=== PATIENT | female | born 1940 | race African-American/Black ===

== ENCOUNTER 2022-01-03 17:52 | Emergency (ER) | payer MEDICARE, MEDICAID ==
[~2022-01-03] VITALS: Ht 175.3 cm; Wt 98.9 kg
--- NOTE | 2022-01-03 17:52 | NUR ---
[facility] TO ER BED 10
[2022-01-03 17:55] VITALS: BP 119/58
--- NOTE | 2022-01-03 18:00 | NUR ---
81 Y/O F C/O ALOC X1 DAY FROM [facility]. PT IS A&OX0. PER EMS PT WAS LOW SAT 70'S. COOL TO TOUCH. SB ON MONITOR. GCS 3. LAST KNOWN WELL 1400. SACRAL WOUND. 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
--- NOTE | 2022-01-03 18:05 | NUR ---
Jane jha in [facility] - 01/03/22 at 1806 by VANESSA CODE BRAIN INITIATED
--- NOTE | 2022-01-03 18:05 | NUR ---
CODE BRAIN INITIATED. CT MADE AWARE.
--- NOTE | 2022-01-03 18:15 | NUR ---
PT TAKEN TO CT SCAN VIA [facility], ACCOMPANIED BY ZAC COLÓN, TRAVEL REGISTERED NURSE PACU, AND JORGE NANCE
--- NOTE | 2022-01-03 18:32 | NUR ---
PT RETURNED FROM CT
--- NOTE | 2022-01-03 18:51 | NUR ---
LAB AT BEDSIDE
--- NOTE | 2022-01-03 19:15 | NUR ---
CTA CONSENT OBTAINED VIA TELEPHONE WITH PT'S SHANE HENSON WITH 2 RN'S. CONSENT PLACED IN CHART
--- NOTE | 2022-01-03 19:19 | NUR ---
KULWINDER SWAB COLLECTED HANDED TO GUM SCORING MACHINE OPERATOR
--- NOTE | 2022-01-03 19:21 | NUR ---
Pt report given to BYRON RN. Transfer of care at this time.
[2022-01-03 19:37] LABS: BASOPHILS # (AUTO) 0.2 K/uL (0.00-0.22); BASOPHILS % (AUTO) 1.4 % (0.0-2.0); EOSINOPHILS # (AUTO) 0.3 K/uL (0-0.4); EOSINOPHILS % (AUTO) 1.7 % (0.0-4.0); HEMATOCRIT 30.4 % (36-48); HEMOGLOBIN 9.7 g/dL (12.0-16.0); LYMPHOCYTES # (AUTO) 0.6 K/uL (2.5-16.5); MEAN CORPUSCULAR HEMOGLOBIN 29 pg (27-31); MEAN CORPUSCULAR HGB CONC 32 g/dL (33-37); MEAN CORPUSCULAR VOLUME 89.6 fL (80-94); MONOCYTES # (AUTO) 0.9 K/uL (0.8-1.0); MONOCYTES % (AUTO) 5.6 % (1.7-9.3); NEUTROPHILS # (AUTO) 13.6 K/uL (1.8-7.7); NEUTROPHILS % (AUTO) 87.3 % (42.2-75.2); PLATELET COUNT (AUTO) 453 K/uL (140-450); RED BLOOD CELL COUNT(AUTO) 3.39 MIL/uL (4.20-5.40); RED CELL DISTRIBUTION WIDTH 18.7 % (11.6-13.7); WHITE BLOOD COUNT (AUTO) 15.6 K/uL (4.8-10.8)
[2022-01-03 19:55] LABS: ANION GAP 13.1 (8-16); CARBON DIOXIDE 30.9 mmol/L (21-32); CHLORIDE 87 mmol/L (98-107); CREATININE 1.3 mg/dL (0.6-1.3); GLUCOSE 265 mg/dL (74-106); SODIUM SERUM 124 mmol/L (136-145)
[2022-01-03 20:04] LABS: UREA NITROGEN, BLOOD 79 mg/dL (7-18)
[2022-01-03] MEDS ORDERED: DEXTROSE 50% 50 ML SYR IVP ONE (20:10)
[2022-01-03] MEDS ORDERED: INSULIN REGULAR, HUMAN 100 UNIT/ML VIAL IVP ONE (20:10)
[2022-01-03] MEDS ORDERED: CALCIUM GLUC 1 GM/50 mL NS BAG 50 ML IV ONE (20:10)
[2022-01-03] MEDS ORDERED: FUROSEMIDE 40 MG/4 ML VIAL IVP ONE (20:10)
[2022-01-03 20:13] LABS: ALBUMIN 1.6 g/dL (3.4-5.0); BILIRUBIN,DIRECT 0.1 mg/dL (0.0-0.3); TOTAL BILIRUBIN 0.2 mg/dL (0.0-1.0)
--- NOTE | 2022-01-03 20:57 | NUR ---
[facility] [place] CLINICALS FAXED TO TRANSFER CENTER AT 2100
--- NOTE | 2022-01-03 21:26 | NUR ---
provided pericare for patient. changed sheets, and applied bed pads. noted wound on the sacral region and underneath right buttcheek. ERMD made aware.
[2022-01-03] MEDS ORDERED: CEFEPIME 1,000 MG in DEXTROSE 5% 50 ML IV ONE (21:40)
--- NOTE | 2022-01-03 21:43 | NUR ---
CALLED FOR RT
--- NOTE | 2022-01-03 21:44 | NUR ---
Patient to be transferred to [facility]. Is being transferred due to higher level of care. Receiving facility has accepting physician and available space. ER physician has signed transfer form. Patient or responsible republican has agreed to transfer and signed form. Patient belongings inventoried and will be sent with patient. Copy of nursing notes, lab reports, EKG, Physicians Orders and X-rays to be sent with patient. Report called to Parish COLÓN at receiving facility. [facility] ambulance service has been called for transfer. ETA is 30minutes.
--- NOTE | 2022-01-03 21:59 | NUR ---
AT 21:55, TRANSPOTED OUT SAFELY TO [facility] BY [facility] TRANSPORT TEAM.
[2022-01-03 22:00] VITALS: BP 106/41
--- NOTE | 2022-01-03 22:00 | NUR ---
patient left via gurney by [facility] crew.
== END 2022-01-03 22:00 ==
LOC: MED 17:52
DX: I63.9 Cerebral infarction, unspecified (principal); Z20.822 Contact with and (suspected) exposure to COVID-19; R41.82 Altered mental status, unspecified
CPT/HCPCS: 36415; 36556; 70450; 71045; 80048; 80076; 83605; 83690; 83880; 84484; 85025; 85379; 87040; 87426; 93005; 96374; 96375; 99291; J0610; J1815; Q0092; J1940